=== PATIENT | male | born 1970 | race Caucasian/White ===

== ENCOUNTER 2017-07-27 22:41 | Emergency (ER) | payer SELFPAY ==
[~2017-07-27] VITALS: Ht 177.8 cm; Wt 83.5 kg
[2017-07-27 22:49] VITALS: BP_SYST 143
[2017-07-27 23:20] VITALS: BP_SYST 143
== END 2017-07-27 23:20 ==
LOC: SED 22:41
DX: Z02.89 Encounter for other administrative examinations (principal); V89.2XXA Person injured in unspecified motor-vehicle accident, traffic, initial encounter; Y93.89 Activity, other specified; Y92.89 Other specified places as the place of occurrence of the external cause; Y99.8 Other external cause status
CPT/HCPCS: 99283